=== PATIENT | female | born 1950 | race Caucasian/White ===

== ENCOUNTER 2019-07-09 09:49 | Outpatient (CLI) | payer MEDICARE, OTHER, SELFPAY ==
[2019-07-09 10:55] LABS: BUN 16 mg/dL (7-18); CREATININE 0.76 mg/dL (0.55-1.02); Calcium 9.5 mg/dL (8.5-10.1); Calculated LDL 77 mg/dL; Chloride 96 mmol/L (98-107); Cholesterol 169 mg/dL (50-200); Glucose 99 mg/dL (70-100); HDL Cholesterol 77 mg/dL (40-60); Potassium 3.2 mmol/L (3.5-5.1); Sodium 137 mmol/L (136-145); Triglyceride 79 mg/dL (30-150)
== END 2019-07-09 10:09 ==
PROVIDERS: PCP Neuromusculoskeletal Medicine & OMM; Visit Provider Neuromusculoskeletal Medicine & OMM
DX: I10 Essential (primary) hypertension (principal); E78.5 Hyperlipidemia, unspecified
CPT/HCPCS: 36415; 80048; 80061

== ENCOUNTER 2019-11-01 01:03 | Outpatient (CLI) | payer MEDICARE, OTHER, SELFPAY ==
--- NOTE | 2019-11-01 10:00 | DI.MAMMO_ITS ---
EXAM: MG MAMMO SCREENING CLINICAL HISTORY: screening TECHNIQUE: Bilateral full field digital CC and MLO mammographic images were obtained with 3D tomosyn thesis and utilizing computer aided detection (CAD). COMPARISON: Available for comparison. FINDINGS: Masses/Architectural Distortion: None seen. Microcalcifications: No suspicious pleomorphic-type are seen. Skin Thickening/Nipple Retraction: None. IMPRESSION: 1. No significant interval change with no specific features of malignancy noted. 2. Unless there is more urgent need, screening mammography is recommended, as per [employer] guidelines. BI-RADS Cat 1 - Negative Breast Density - Category B - Scattered areas of fibroglandular density A negative radiographic report should not delay biopsy if a dominant or clinically suspicious mass is present. Up to ten percent of cancers are not identified on mammography. A negative report may reinforce clinical impression. Adenosis and dense breasts may obscure an underlying neoplasm. False positive reports average 6 to 10%. Patient will receive a letter notifying them of these results.
== END 2019-11-01 01:23 ==
PROVIDERS: PCP Neuromusculoskeletal Medicine & OMM; Visit Provider Nurse Practitioner Family
DX: Z12.31 Encounter for screening mammogram for malignant neoplasm of breast (principal)
CPT/HCPCS: 77063; 77067

== ENCOUNTER → 2022-01-18 01:00 | Outpatient (CLI) | payer MEDICARE, OTHER, SELFPAY ==
--- OUTSIDE RECORDS SUMMARY | 2022-01-18 01:02 | XMS_ITS ---
:1950 Author Care Team Providers Name Role Phone MARILEE RIVERA Primary Care Provider [phone] Allergies Code Code System Name Reaction Severity Status Onset NKDA ? Medications Name Status Start Date Stop Date ? ? albuterol sulfate concentrate 2.5 mg/0.5 mL Completed 08/2612/05/2009 solution for nebulization alprazolam 0.5 mg tablet Completed 12/05/2009 010 1 Tablet: three times daily, as needed atorvastatin 20 mg tablet Active ? Not av ailable TAKE 1 TABLET AT BEDTIME chlorthalidone 25 mg tablet Completed ? 07/25 clobetasol 0.05 % scalp solution Active ? Not available famotidine 10 mg tablet Completed ? 01/06/20 19 Take 1 tablet every day by oral route. flaxseed Active ? Not available 1 daily fluocinolone 0.01 % topical body oil Completed ? 06/01/2020 hydroxyzine HCl 25 mg tablet Completed 06/17/2011 1 (one) Tablet: 4-6 hours for itching IBU 600 mg tablet Completed ? 08/03/2019 ibuprofen 200 mg tablet Active ? Not avai lable Take 1 tablet every 6 hours by oral route. Kenalog 40 mg/mL suspension for injection Completed ? 08/04/2018 1 shot lisinopril 20 mg tablet Completed ? 06/01/20 20 TAKE 1 TABLET DAILY meloxicam 15 mg tablet Completed 03/22/2014 4 1 (one) Tablet: daily, as needed metoprolol succinate ER 25 mg tablet,extended Active ? Not available release 24 hr metronidazole 0.75 % topical gel Active ? Not available multivitamin Active ? Not available 1 daily omeprazole 20 mg tablet,delayed release Completed 02/20/20 16 07/31/2017 1 (one) Tablet DR: as needed prednisone 20 mg tablet Completed 06/17/2011 06/24/20 11 1 Tablet: daily as directed Soolantra 1 % topical cream Active ? Not available PRN Zithromax TRI-PHILLIP 500 mg tablet Completed 02/04/2007 02/07/2007 1 Tablet: Daily Problems Name Status Onset Date Source ? Hyperlipidemia Active ? History Hypertensive Disorder Active ? History Contact Dermatitis Unknown ? History Palpitations Active ? History Active Immunization Unknown ? History Adult Health Examination Unknown ? History Screening for Cardiovascular System Disease Unknown ? History Trochanteric Bursitis of Right Hip Active ? History Finding of Esophagus Unknown ? History Procedure by Method Unknown ? History Mental Disorder Unknown ? History Procedures Date Name Performed by ? 08/03/2019 Electrocardiogram [facility] [place] [address] [place] [address] (Work Place) 08/03/2019 Event Monitor [facility] Cardio pulmonary [address] [place] [address] (Work Place) 08/03/2020 MAMMO, Screening, Tomosynthesis, [facility] Radiology (Internal) Bilateral [address] [place] [address] (Work Place) Results Lab Results Date Name Specimen Result Interpretation Description Value Range Status Address ? 09/18/2021 CMP, Serum or S ? g/r 96 mg/dL 74-106 [place] Plasma mg/dL [facility] (Internal) : [address] ? ? S High Bun 23 mg/dL 7-18 Final [place] mg/dL [facility] (Internal) : [address] ? ? S ? Crea 0.8 mg/dL 0.6-1.0 Final [place] mg/dL [facility] (Internal) : [address] ? ? S ? Ca 9.5 mg/dL 8.5-10. Final [place] 1 mg/dL [facility] (Internal) : [address] ? ? S ? Na 138 mmol/L 136-145 Final [place] mmol/L [facility] (Internal) : [address] ? ? S ? K 4.3 mmol/L 3.5-5.1 Final [place] mmol/L [facility] (Internal) : [address] ? ? S ? Cl 100 mmol/l 98-107 Final North mmol/l [facility] (Internal) : [address] ? ? S ? Tco2 28.9 mmol/L 21.0-32 Final Nort h .0 Country mmol/L Hospital L [facility] (Internal) : [address] ? ? S ? Tp 7.6 g/dL 6.4-8.2 Final North g/dL [facility] (Internal) : [address] ? ? S ? Alb 3.8 g/dL 3.4-5.0 Final [place] g/dL [facility] : [address] ? ? S ? Tbil 0.40 mg/dL 0.20-1. Final [place] 00 Country mg/dL Hospital L ab (Internal) : [address] ? ? S ? Alp 93 U/L 46-116 Final North U/L [facility] (Internal) : [address] ? ? S ? Alt (Sgpt) 30 U/L 14-59 Final North U/L [facility] (Internal) : [address] ? ? S ? Ast (Sgot) 18 U/L 15-37 Final North U/L [facility] (Internal) : [address] 09/18/2021 Lipid Panel, Serum S ? Chol 196 mg/dL 0-200 Final North mg/dL [facility] (Internal) : [address] ? ? S ? Trig 136 mg/dL 0-150 Final North mg/dL [facility] (Internal) : [address] ? ? S High Hdl 68 mg/dL 40-60 Final North mg/dL [facility] (Internal) : [address] ? ? S ? Ldl 101 mg/dL 0-130 Final North mg/dL [facility] (Internal) : [address] 09/18/2021 Venipuncture ? Location Right ? ? [facility] [place]: [address], [place] ? ? ? Needle 21g ? ? P[facility] Prim jillian Vacutainer [facility] [place]: [address] [facility] [place] [place] ? ? ? Number of 1 ? ? P_nc P rimary Attempts Care [place]: [address] [facility], [place] ? ? ? Successful Yes ? ? [facility] [place] [address] [facility], [place] ? ? ? Dressing Pressure ? ? P[facility] Primary Band-aid Care Applied [place]: [address] [facility], [place] ? ? ? Initials hj ? ? P[facility] Pr imary Care [place] [address] [facility] [place] 08/05/2019 Electrocardiogram ? Rate & ? ? ? [facility] Primary Rhythm [facility] [place]: [address] [facility], [place] ? ? ? Qrs ? ? ? P[facility] Prima ry Care [place]: [address] [facility], [place] ? ? ? [place] ? ? ? P_nc Prima ry Interval Care [place]: [address] [facility], [place] ? ? ? QRS ? ? ? P_nc Prima ry Duration Care [place]: [address] [facility], [place] ? ? ? QT ? ? ? [facility] Prima ry Interval [facility] [place] [address] [facility] Past Encounters 09/18/2021 Hyperlipidemia Marilee Rivera, DO: [address] [facility] [address], Ph. 08/15/2021 Adult Health Examination; Hyperlipidemia ; Essential Hypertension; Pain in Right Hip Joint Marilee Rivera, DO: [address] [facility] [address], Ph. 08/07/2021 Administration of Influenza Vaccine Marilee Rivera, DO: [address] [facility] [address], Ph. 03/20/2021 Trochanteric Bursitis of Right Hip Marilee Rivera, DO: [address] [facility] [address], Ph. 08/03/2020 Adult Health Examination; Palpitations; Hypertensive Disorder; Hyperlipidemia Marliee Rivera, DO: [address] [place] [phone], Ph. Social History Tobacco Smoking Status Former Smoker Vaccine List Vaccine Type COVID-19, mRNA, LNP-S, PF, 100 mcg/0.5 m L dose (Moderna) 10/25/2020 11/22/2020 07/11/2021 influenza, high dose seasonal 07/31/2017 influenza, high-dose, quadrivalent 06/01/2020?0.7 mL 08/07/2021?0.7 mL pneumococcal conjugate PCV 13 08/04/2018?0.5 mL pneumococcal polysaccharide PPV23 08/03/2019?0.5 mL Tdap 03/18/2006 02/20/2016?0.5 mL Plan of Care Reminders Provider Appointments None recorded. ? ? Lab None recorded. ? ? Referral None recorded. ? ? Procedures None recorded. ? ? Surgeries None recorded. ? ? Imaging None recorded. ? ? Vitals 08/15/2021 09:40AM CPE 20 Height Weight BMI Blood Pressure 167.64 cm 71.21 kg 25.3 kg/m2 132/74 mm[Hg] 08/07/2021 01:00PM Nurse 20 Height 167.64 cm 03/20/2021 11:00AM Injection 20 Height Weight BMI Blood Pressure 167.64 cm 71.21 kg 25.3 kg/m2 134/80 mm[Hg] 08/03/2020 09:40AM AWV 20 Height Weight BMI Blood Pressure 167.64 cm 70.31 kg 25 kg/m2 138/80 mm[Hg] 06/01/2020 12:40PM Acute 20 Height Weight BMI Blood Pressure 167.64 cm 71.67 kg 25.5 kg/m2 132/78 mm[Hg] 08/31/2019 02:40PM Follow Up 20 Height Weight BMI Blood Pressure 167.64 cm 68.49 kg 24.4 kg/m2 142/80 mm[Hg] 08/03/2019 12:40PM AWV 20 Height Weight BMI Blood Pressure 167.64 cm 68.95 kg 24.5 kg/m2 144/80 mm[Hg] 01/05/2019 03:40PM Injection 20 Height Weight BMI Blood Pressure 167.64 cm 69.85 kg 24.9 kg/m2 124/70 mm[Hg] 08/04/2018 12:40PM AWV 20 Height Weight BMI Blood Pressure 167.64 cm 68.49 kg 24.4 kg/m2 142/74 mm[Hg] 01/13/2018 04:00PM Procedure 20 Height Weight BMI Blood Pressure 167.64 cm 71.71 kg 25.5 kg/m2 138/88 mm[Hg] 07/31/2017 Weight Blood Pressure 66.68 kg 130/74 mm[Hg] 02/21/2017 Weight Blood Pressure 67.13 kg 122/68 mm[Hg] 03/21/2016 Height Weight Blood Pressure 167.64 cm 68.04 kg 140/78 mm[Hg] 02/20/2016 Weight Blood Pressure 68.95 kg 140/80 mm[Hg] 12/05/2015 Height Weight Blood Pressure 167.64 cm 70.31 kg 134/90 mm[Hg] 08/01/2015 Height Weight Blood Pressure 167.64 cm 70.31 kg 148/88 mm[Hg] 03/07/2015 Height Weight Blood Pressure 167.64 cm 71.21 kg 132/94 mm[Hg] 12/15/2014 Weight Blood Pressure 72.8 kg 138/84 mm[Hg] 08/09/2014 Weight Blood Pressure 72.57 kg 158/98 mm[Hg] 02/16/2014 Height Weight Blood Pressure 167.64 cm 71.21 kg 142/84 mm[Hg] 06/17/2011 Height Weight Blood Pressure 167.64 cm 69.85 kg 130/70 mm[Hg] 01/03/2010 Height Weight Blood Pressure 170.18 cm 71.21 kg 128/70 mm[Hg] 12/05/2009 Weight Blood Pressure 70.31 kg 124/80 mm[Hg] 02/23/2007 Weight Blood Pressure 68.04 kg 120/72 mm[Hg] 02/04/2007 Weight Blood Pressure 65.77 kg 122/70 mm[Hg] 09/18/2006 Height Weight Blood Pressure 165.1 cm 69.4 kg 112/80 mm[Hg] 09/11/2006 Weight Blood Pressure 68.49 kg 118/68 mm[Hg] 03/18/2006 Height Weight Blood Pressure 167.64 cm 66.68 kg (1) 134/84 mm[Hg] (2) 132/92 mm[Hg]
--- NOTE | 2022-01-18 12:15 | DI.MAMMO_ITS ---
Exam(s) MAMMO SCREENING EXAM: MAMMO SCREENING CLINICAL HISTORY: screening TECHNIQUE: Mammograms were interpreted according to the usual protocol including computer analysis w [employer] CAD system, tomosynthesis and C-view imaging. COMPARISON: 2012 through 2019 FINDINGS: The breasts are composed of scattered fibroglandular densities, Breast Density category B. No suspicious masses or suspicious microcalcifications are seen. No skin thickening or abnormal axillary lymph nodes are seen. There has been no significant change from prior exams. IMPRESSION: BI-RADS Category 1, Negative mammogram Yearly screening mammography is recommended. Breast Density - Category B, scattered fibroglandular densities. A negative radiographic report should not delay biopsy if a dominant or clinically suspicious mass is present. Up to ten percent of cancers are not identified on mammography. A negative report may reinforce clinical impression. Adenosis and dense breasts may obscure an underlying neoplasm. False positive reports average 6 to 10%. Patient will receive a letter notifying them of these results.
== END ==
PROVIDERS: PCP Neuromusculoskeletal Medicine & OMM; Visit Provider Nurse Practitioner Family
DX: Z12.31 Encounter for screening mammogram for malignant neoplasm of breast (principal)
CPT/HCPCS: 77063; 77067

== ENCOUNTER → 2022-11-14 10:59 | Outpatient (BNVA) | payer MEDICARE, OTHER, SELFPAY | PROVIDERS: PCP Neuromusculoskeletal Medicine & OMM; Referring Provider Neuromusculoskeletal Medicine & OMM; Visit Provider Physical Therapy Assistant | DX: Z12.11 Encounter for screening for malignant neoplasm of colon (principal) ==

== ENCOUNTER 2022-11-25 09:49 | Day surgery (SDC) | payer MEDICARE, OTHER, SELFPAY ==
--- NOTE | 2022-11-24 19:57 | PDOC.DSDIS_ITS ---
Date of service: 11/25/22 Time of Service: 10:55 Discharge Plan Disposition Patient Disposition: Home Condition: Good Discharge Details Reason For Visit: Colonoscopy Attending Provider: Ghanshyam Colvin Primary Care Provider: Earl Rivera [place] Meds and New Rx's Prescriptions: Continued metoprolol succinate 25 mg capsule,sprinkle,ER 24hr 25 mg PO DAILY ibuprofen 200 mg capsule 200 mg PO Q6H PRN aspirin [Adult Aspirin Regimen] 81 mg tablet,delayed release (DR/EC) 81 mg PO DAILY clobetasol 0.025 % cream 1 applic topical DAILY multivitamin [Daily Multi-Vitamin] 1 EACH tablet 1 ea PO DAILY atorvastatin 20 MG tablet 20 mg PO DAILY Discontinued bisacodyl [Dulcolax (bisacodyl)] 5 mg tablet,delayed release (DR/EC) 5 mg PO ONCE Qty: 4 0RF Rx Instructions: Take according to provider's instructions for colonoscopy prep. polyethylene glycol 3350 17 gram/dose powder 17 g PO ONCE Qty: 238 0RF Rx Instructions: To be taken as directed by prescriber's office for colonoscopy prep. Discharge Instructions Additional Instructions: 1. If tolerated, consume a soft, low fiber diet for 1-2 days. 2[address] Do not drive, drink alcohol, operate machinery, make critical decisions, or do activities that require coordination or balance for 24 hours. 3. Because air was put into your colon during the procedure, expelling air from your rectum (passing gas or farting) is normal. 4. You may not have a bowel movement for 1-3 days because of the colonoscopy prep. This is normal. 5. Go directly to the emergency room if you notice any of the following: Develop chills (warm to touch), or if you have a thermometer and your temperature is above 101 Difficulty breathing or difficultly swallowing Persistent vomiting Severe abdominal pain, other than gas cramps Severe chest pain Black, tarry stools Any bleeding ? exceeding one tablespoon 6. Call your physician if the site where your intravenous was started becomes red, swollen, painful, and warm to touch. 7. Your physician has reviewed your pre-procedure medications. Please continue to take those medications as previously ordered. You will be given specific information/education regarding any changes to your medications before leaving. Activity:: Activity as Tolerated Diet:: As Tolerated Discharge Orders Discharge Orders: Discharge Order (Routine); Ordered 11/24/22 Ordered By: Ghanshyam Colvin DS: Diagnosis Discharge Diagnosis (1) Screening for colon cancer: Status: Acute Asessment and Plan: Follow-up on polypectomy results
--- NOTE | 2022-11-24 19:58 | W.COLOREPORT ---
Date of service: 11/25/22 Time of Service: 10:57 Colonoscopy Report Date of procedure: 11/25/22 Pre-op diagnosis general: Screening colonscopy Post-op diagnosis procedure note: other (Colorectal polyps) Procedure: Colonoscopy with polypectomy Surgeon: Ghanshyam Colvin Anesthesia Type: General:No Airway Estimated blood loss (mL): 5 Pathology: other (Colon polyps at 20 cm) Complications: None Disposition: same day Indications: Madelaine is a 72 year old women who is here for a screening colonoscopy Prep: Miralax/Dulcolax Procedure Start Time: 10:33 Procedure End Time: 10:47 Retraction Time: 11 Findings: Polyps at 20 cm Procedure Description: After the induction of monitored anesthetic care, and with the patient in left lateral decubitus position, I began by performing an external anorectal exam.? Perineum and skin were normal, as was the anal verge.? There was no evidence of external hemorrhoids.? Next, I performed a digital rectal exam.? I did not appreciate any abnormal findings.? Next, I advanced a colonoscope into the rectal vault.? I performed retroflexion.? This appeared normal.? Using insufflation, I then advanced the colonoscope beyond the rectal folds and into the sigmoid colon before advancing towards the cecum.?Around 20 cm from the anal verge I identified 2 polyps. Each was less than 0.5 cm. ?Both appeared sessile in character. ?I was able to remove these with a cold forceps. ?I examined the sites, and there was minimal bleeding. ?Once this was completed, I continued to withdraw the scope and examine the remainder of the colonic mucosa. The quality of the prep was excellent.? The scope was noted to be in the cecum by identification of the ileocecal valve and appendiceal orifice.? I then began withdrawing the colonoscope using repeated irrigation as necessary for full evaluation of the colonic mucosa. ?Once the scope was withdrawn to the level of the rectum, great care was taken to examine portions of the rectal folds.? Finally, the scope was withdrawn and the patient was brought to the same-day surgery recovery unit as the anesthetic wore off. ?The findings and instructions were shared with the patient prior to discharge.
[2022-11-25 10:00] VITALS: BP 114/86; PULSE 72; RESP 16; TEMP 36; O2SAT 96
--- NOTE | 2022-11-25 10:17 | W.ANESPRE ---
General Info Date of Service Date Performed: 11/25/22 Height: 5 ft 6 in Weight: 68.4 kg Body Mass Index (BMI): 24.3 Surgical Procedure: Operation Date: 11/25/22 11:05 Proposed Procedure Side Surgeon p Jose Colvin MD Meds Allergies and Home Medications Allergies Allergy/AdvReac Type Severity Reaction Status Date / Time No Known Allergies Allergy Verified 11/25/22 10:00 Home Medication Medication Instructions Recorded multivitamin (Daily Multi-Vitamin 1 ea PO DAILY 02/20/15 tablet) atorvastatin 20 mg tablet 20 mg PO DAILY 03/19/16 ibuprofen 200 mg capsule 200 mg PO Q6H PRN 10/29/19 metoprolol succinate 25 mg capsule 25 mg PO DAILY 10/29/19 sprinkle, ext. release 24 hr aspirin 81 mg tablet,delayed 81 mg PO DAILY 11/14/22 release (Adult Aspirin Regimen) clobetasol 0.025 % topical cream 1 applic topical DAILY 11/14/22 Current Visit Medications: Current Medications Generic Name Dose Route Start Last Admin Trade Name Freq PRN Reason Stop Dose Admin Hyoscyamine Sulfate 0.125 mg 11/24/22 20:00 Hyoscyamine 0.125 Mg Sl/Oral/Chew SL DIRECTED PRN Ringer's Solution 1,000 mls @ 80 mls/hr 11/25/22 06:00 IV 11/25/22 23:59 [facility] IV Miscellaneous Supplies 1 each 11/25/22 06:00 Iv Access IV 11/25/22 23:59 DIRECTED WYATT Ondansetron HCl 4 mg 11/24/22 20:00 Ondansetron 4 Mg/2 Ml Vial IVP Q4H PRN PRN Nausea / Vomiting Sodium Chloride 0 ml 11/25/22 06:00 Normal Saline Flush 10 Ml Syr IV 11/25/22 23:59 PRN PRN Sodium Chloride 0 ml 11/25/22 06:00 Normal Saline 10 Ml Vial IJ 11/25/22 23:59 DIRECTED PRN Sterile Water 0 ml 11/25/22 06:00 Water,Injection,Sterile 10 Ml Vial IJ 11/25/22 23:59 DIRECTED PRN PFSH Active Problems Active Problems: Problem Status Onset Code Elevated lipids 03/19/16 E78.5 Screening for colon cancer Z12.11 Medical History Medical History (Updated 11/22/22 @ 13:40 by Anson Aldrich) High cholesterol HTN (hypertension) Surgical History Surgical History Appendectomy Ligation of fallopian tube Tobacco Smoking/Tobacco Use Status: Former Tobacco Use Alcohol Alcohol Intake: never Substance Use Substance use type: does not use Vital Signs and Lab Results Vital Signs Most Recent Vital Signs in EMR: Most Recent Vital Signs Temp Pulse Resp BP Pulse Ox 36.0 C L 72 16 114/86 96 11/25/22 10:00 11/25/22 10:00 11/25/22 10:00 11/25/22 10:00 11/25/22 10:00 Lab Results Blood Type / Crossmatch: No Data to Display Complete Blood Count: No Data to Display Complete Metabolic Panel: No Data to Display Liver Function Panel: No Data to Display Coagulation Panel: No Data to Display Cardiac Panel: No Data to Display Arterial Blood Gas: No Data to Display Venous Blood Gas: No Data to Display Pancreas Panel: No Data to Display Thyroid Panel: No Data to Display Infectious Disease: No Data to Display Blood Cultures: No Data to Display Toxicology Panel: No Data to Display Anesthesia Assessment and Plan Anesthesia History Personal History: No History of Anesthesia Complications Family History: No Family History of Anesthesia Complications Exercise Tolerance Exercise Tolerance: Metabolic Equivalents>4 Pertinent Negatives Pertinent Negatives: No Symptoms of GERD, No Major Cardiovascular Symptoms or Complaints, No Major Pulmonary Symptoms or Complaints and No History of CVA/TIA Cardiac & Pulmonary Exam Cardiac Exam: Normal S1/S2 Heart Sounds Pulmonary Exam: Clear Bilateral Breath Sounds Implantable Cardiac Device Does patient have a Pacemaker or an ICD?: No Airway Exam Known Difficult Airway: No Mallampati Class: 2 Mouth Opening: Normal (> 3cm) Thyromental Distance: Greater than 3 cm Neck Range of Motion: Full ROM Neck Circumference: Normal Teeth Condition: Normal Dentition (prominent upper front teeth) ASA Classification ASA Score: ASA 2 Emergency Case?: No NPO Status NPO Status: NPO Clears >2 hours, Solids >8 hours Anesthesia Plan Resuscitation Status: Full Code Anesthesia Technique: General Anesthesia Airway Planned: Natural Airway Monitors Used: Standard Monitors
[2022-11-25] MEDS: Lactated Ringers 1,000 ML 80 ML IV (10:18)
[2022-11-25 10:22] VITALS: BMI 24.3
--- NOTE | 2022-11-25 10:36 | BOWEL_PTH ---
PATIENT: Madelaine Walters LOC: [facility] U#:[id number] AGE/SX: 72/F ROOM: RE11/25/[address]: Ghanshyam Colvin MD : 1950 BED: DIS: 11/25/2022 SPEC #: [id number] RECD: 11/25/22 13:01 STATUS: MAHSA REQ #: [id number] SANDEEP: 11/25/22 10:[address]: Ghanshyam Colvin DEPT: Surgical Specimen RECD BY: Madelaine Simpson ENTERED: 11/25/22 13:02 SP TYPE: Bowel OTHR DR: Earl Rivera Tissues: 1 - BIOPSY BOWEL Procedures: GROSS AND MICRO LEVEL 4 Comments: [id number]
[2022-11-25 10:53] VITALS: BP 88/64; PULSE 78; RESP 16; TEMP 36.7; O2SAT 98
[2022-11-25 11:25] VITALS: BP 116/68; PULSE 76; RESP 16; TEMP 36.4; O2SAT 98
--- NOTE | 2022-11-25 11:50 | W.ANESPOSTOP ---
Postoperative Evaluation Date, Time and Location Date Performed: 11/25/22 Time Performed: 11:25 Patient Location: Day Surgery Unit Vital Signs Most Recent Imported Vital Signs: Most Recent Vital Signs Temp Pulse Resp BP Pulse Ox 36.4 C L 76 16 116/68 98 11/25/22 11:25 11/25/22 11:25 11/25/22 11:25 11/25/22 11:25 11/25/22 11:25 Pain Score Most Recent Pain Score: Most Recent Pain Score Pain Level 0 11/25/22 11:25 Assessment Mental Status: Awake (Alert & Oriented to Patient Baseline) Airway and Respiratory Function: Patent airway with normal (patient baseline) respiratory exam Cardiovascular Function: Hemodynamically Stable Hydration Status: Adequately Hydrated Nausea & Vomiting: No Nausea or Vomiting Pain: Pt. Denies Any Pain Peripheral Nerve Block: Patient did not receive a nerve block
== END 2022-11-25 11:35 | disposition home or self-care (01) ==
PROVIDERS: PCP Neuromusculoskeletal Medicine & OMM; Visit Provider Surgery
PROC: 0DJD8ZZ Inspection of Lower Intestinal Tract, Via Natural or Artificial Opening Endoscopic (ICD-10-PCS; CPT 45378; principal; 2022-11-25 11:00)
DX: Z12.11 Encounter for screening for malignant neoplasm of colon (principal); K63.5 Polyp of colon
CPT/HCPCS: 45380; 88305

== ENCOUNTER 2023-05-26 09:12 | Outpatient (CLI) | payer MEDICARE, OTHER, SELFPAY ==
--- NOTE | 2023-05-26 09:00 | DI.RAD_ITS ---
Exam(s) XR PELVIS AP EXAM: XR PELVIS AP CLINICAL HISTORY: THR planning. TECHNIQUE: 2D digital imaging was performed. COMPARISON: No exams were available for comparison FINDINGS: Single view. No evidence of pelvic nor hip fracture. However, there is severe advanced [id number] narrowing of the right hip joint space with some flattening of the right femoral head and prominent subarticular d egenerative cysts both sides the joint. Largest are of subarticular cyst is seen in the roof of the acetabulum. More moderate degenerative changes are noted in the opposite-left hip. 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 Moderate degenerative changes in the left hip. DATA REPOSITORY: RADIATION DOSE DELIVERED:
== END 2023-05-26 09:13 | disposition home or self-care (01) ==
LOC: DIORS 09:12
PROVIDERS: PCP Neuromusculoskeletal Medicine & OMM; Referring Provider Neuromusculoskeletal Medicine & OMM; Visit Provider Student in an Organized Health Care Education/Training Program
DX: M25.559 Pain in unspecified hip (principal); M16.11 Unilateral primary osteoarthritis, right hip
CPT/HCPCS: 99213; 72170

== ENCOUNTER 2023-06-23 03:14 | Outpatient (CLI) | payer MEDICARE, SELFPAY ==
[2023-06-23 15:41] LABS: HCT 42.3 % (36.0-46.0); HGB 13.6 g/dL (11.2-15.7); MCH 28.9 pg (27.0-33.0); MCHC 32.2 % (32.0-36.0); MCV 90 fL (80-95); MPV 9.3 fL (8.0-11.0); Platelet Count 326 10^3/uL (130-400); RBC 4.71 10^6/uL (3.93-5.22); RDW 12.8 % (11.7-14.6); RDW-SD 42.3 fL; WBC 8.28 10^3/uL (4.4-10.8)
[2023-06-23 16:36] LABS: Anion Gap 9.4 mmol/L (3-11); BUN 22 mg/dL (7-18); CO2 27.6 mmol/L (21.0-32.0); CREATININE 0.9 mg/dL (0.55-1.02); Calcium 9.6 mg/dL (8.5-10.1); Chloride 99 mmol/L (98-107); Estimated GFR 67.92 (mL/min/1.73m2); Glucose 95 mg/dL (74-106); Potassium 4.2 mmol/L (3.5-5.1); Sodium 136 mmol/L (136-145)
== END 2023-06-23 03:15 | disposition home or self-care (01) ==
LOC: LBO 03:14
PROVIDERS: PCP Neuromusculoskeletal Medicine & OMM; Visit Provider Student in an Organized Health Care Education/Training Program
DX: M16.11 Unilateral primary osteoarthritis, right hip (principal); Z01.818 Encounter for other preprocedural examination
CPT/HCPCS: 36415; 80048; 85027

== ENCOUNTER 2023-06-23 17:49 | Outpatient (CLI) | payer MEDICARE, SELFPAY ==
--- NOTE | 2023-06-23 14:00 | DI.RAD_ITS ---
Exam(s) XR PELVIS AP EXAM: XR PELVIS AP CLINICAL HISTORY: PRE OP R NICO. TECHNIQUE: 2D digital imaging was performed. COMPARISON: CR XR PELVIS AP from 05/26/2023 FINDINGS: Severe degenerative changes of the right hip are again noted, with obliteration of the superior joint space, flattening of the femoral head and acetabular remodeling as well as subchondral cyst formatio n. Findings unchanged from prior. Mild degenerative changes noted in the right hip. IMPRESSION: Stable end-stage degenerative changes of the right hip. DATA REPOSITORY: RADIATION DOSE DELIVERED:
== END 2023-06-23 17:50 | disposition home or self-care (01) ==
LOC: DIORS 17:51
PROVIDERS: PCP Neuromusculoskeletal Medicine & OMM; Visit Provider Physician Assistant
DX: M16.11 Unilateral primary osteoarthritis, right hip (principal); Z01.818 Encounter for other preprocedural examination
CPT/HCPCS: 36415; 80048; 85027; 72170

== ENCOUNTER 2023-07-08 06:14 | Day surgery (SDC) | payer MEDICARE, SELFPAY ==
[2023-07-08] VITALS (17 sets, daily range): BP systolic 59–204; BP diastolic 28–100; PULSE 58–75; RESP 10–18; TEMP 36.3–36.6; O2SAT 95–100; BMI 25.3
[2023-07-08] MEDS: Celecoxib 200 MG CAP 400 MG PO (06:35)
[2023-07-08] MEDS: Acetaminophen 500 MG TAB 1000 MG PO (06:35)
[2023-07-08] MEDS: Lactated Ringers 1,000 ML 80 ML IV (06:45)
--- NOTE | 2023-07-08 06:58 | W.ANESPRE ---
General Info Date of Service Date Performed: 07/08/23 Height: 5 ft 6 in Weight: 71.3 kg Body Mass Index (BMI): 25.3 Surgical Procedure: Operation Date: 07/08/23 07:50 Proposed Procedure Side Surgeon p Hip Total Hip Anterior, Corail (STD or Low ) Right Eduardo Evans MD Meds Allergies and Home Medications Allergies Allergy/AdvReac Type Severity Reaction Status Date / Time No Known Allergies Allergy Verified 07/08/23 06:11 Home Medication Medication Instructions Recorded multivitamin (Daily Multi-Vitamin 1 ea PO DAILY 02/20/15 tablet) atorvastatin 20 mg tablet 20 mg PO DAILY 03/19/16 metoprolol succinate 25 mg capsule 25 mg PO DAILY 10/29/19 sprinkle, ext. release 24 hr clobetasol 0.025 % topical cream 1 applic topical DAILY 11/14/22 echinacea 380 mg capsule 380 mg PO DAILY 05/26/23 vitamin E (dl, acetate) 45 mg (100 45 mg PO DAILY 05/26/23 unit) capsule acetaminophen 500 mg tablet 1,000 mg (2 x 500 mg) PO Q8H PRN 07/08/23 pain #90 tabs aspirin 81 mg tablet,delayed 81 mg PO BID 30 days #60 tabs 07/08/23 release celecoxib 200 mg capsule (Celebrex) 200 mg PO BID PRN #60 caps 07/08/23 dexamethasone 4 mg tablet 4 mg PO DAILY #2 tabs 07/08/23 docusate sodium 100 mg capsule 100 mg PO BID #30 caps 07/08/23 (Colace) oxycodone 5 mg tablet 5 mg PO Q6H PRN #12 tabs 07/08/23 pantoprazole 40 mg tablet,delayed 40 mg PO DAILY #14 tabs 07/08/23 release Current Visit Medications: Current Medications Generic Name Dose Route Start Last Admin Trade Name Freq PRN Reason Stop Dose Admin Acetaminophen 1,000 mg 07/08/23 06:00 07/08/23 06:35 Acetaminophen 500 Mg Tab PO 07/08/23 16:00 1,000 mg PREOP WYATT Administration Celecoxib 400 mg 07/08/23 06:00 07/08/23 06:35 Celecoxib 200 Mg Cap PO 07/08/23 16:00 400 mg PREOP WYATT Administration Tranexamic Acid 1,000 mg/ 60 mls @ 360 mls/hr 07/08/23 06:00 Sodium Chloride IV 07/08/23 16:00 PREOP WYATT Ringer's Solution 1,000 mls @ 80 mls/hr 07/08/23 06:00 07/08/23 06:45 IV 08/06/23 23:59 80 mls/hr INFUSION WYATT Administration Cefazolin Sodium/Dextrose 2 gm in 50 mls @ 100 mls/hr 07/08/23 06:00 Ancef Duplex IVPB 07/08/23 16:00 PREOP WYATT IV Miscellaneous Supplies 1 each 07/08/23 06:00 Iv Access IV 08/06/23 23:59 DIRECTED WYATT Sodium Chloride 0 ml 07/08/23 06:00 Normal Saline Flush 10 Ml Syr IV 08/06/23 23:59 PRN PRN Sodium Chloride 0 ml 07/08/23 06:00 Normal Saline 10 Ml Vial IJ 08/06/23 23:59 DIRECTED PRN Sterile Water 0 ml 07/08/23 06:00 Water,Injection,Sterile 10 Ml Vial IJ 08/06/23 23:59 DIRECTED PRN PFSH Active Problems Active Problems: Problem Status Onset Code Primary osteoarthritis of right hip M16.11 Hyperplastic colon polyp ~11/25/22 K63.5 Retinal artery occlusion H34.9 Medical History Medical History Hyperlipidemia HTN (hypertension) Surgical History Surgical History History of colonoscopy with polypectomy (~11/25/22) Ligation of fallopian tube Appendectomy Tobacco Smoking/Tobacco Use Status: Former Tobacco Use Alcohol Alcohol Intake: never Substance Use Substance use type: does not use Prental History History 2 Para 2 Hx # Term Pregnancies Multiple births Hx # Pregnancies Ectopic pregnancies AB induced Hx Number of Living Children AB spontaneous Vital Signs and Lab Results Vital Signs Most Recent Vital Signs in EMR: Most Recent Vital Signs Temp Pulse Resp BP Pulse Ox 36.5 C 67 18 156/86 H 98 07/08/23 06:11 07/08/23 06:11 07/08/23 06:11 07/08/23 06:11 07/08/23 06:11 Lab Results Blood Type / Crossmatch: No Data to Display Complete Blood Count: White Blood Count 8.28 10^3/uL (4.4-10.8) 06/23/23 15:29 Red Blood Count 4.71 10^6/uL (3.93-5.22) 06/23/23 15:29 Hemoglobin 13.6 g/dL (11.2-15.7) 06/23/23 15:29 Hematocrit 42.3 % (36.0-46.0) 06/23/23 15:29 Platelet Count 326 10^3/uL (130-400) 06/23/23 15:29 Complete Metabolic Panel: Sodium 136 mmol/L (136-145) 06/23/23 15:29 Potassium 4.2 mmol/L (3.5-5.1) 06/23/23 15:29 Chloride 99 mmol/L (98-107) 06/23/23 15:29 Carbon Dioxide 27.6 mmol/L (21.0-32.0) 06/23/23 15:29 BUN 22 mg/dL (7-18) H 06/23/23 15:29 Creatinine 0.9 mg/dL (0.55-1.02) 06/23/23 15:29 Est GFR (CKD-EPI 2020) 67.92 (mL/min/1.73m2) 06/23/23 15:29 Calcium 9.6 mg/dL (8.5-10.1) 06/23/23 15:29 Glucose 95 mg/dL (74-106) 06/23/23 15:29 Liver Function Panel: No Data to Display Coagulation Panel: No Data to Display Cardiac Panel: No Data to Display Arterial Blood Gas: No Data to Display Venous Blood Gas: No Data to Display Pancreas Panel: No Data to Display Thyroid Panel: No Data to Display Infectious Disease: No Data to Display Blood Cultures: No Data to Display Toxicology Panel: No Data to Display Anesthesia Assessment and Plan Anesthesia History Personal History: No History of Anesthesia Complications Family History: No Family History of Anesthesia Complications Exercise Tolerance Exercise Tolerance: Metabolic Equivalents>4 Pertinent Negatives Pertinent Negatives: No Symptoms of GERD, No Major Cardiovascular Symptoms or Complaints, No Major Pulmonary Symptoms or Complaints and No History of CVA/TIA Cardiac & Pulmonary Exam Cardiac Exam: Normal S1/S2 Heart Sounds Pulmonary Exam: Clear Bilateral Breath Sounds Implantable Cardiac Device Does patient have a Pacemaker or an ICD?: No Airway Exam Known Difficult Airway: No Mallampati Class: 2 Mouth Opening: Normal (> 3cm) Thyromental Distance: Greater than 3 cm Neck Range of Motion: Full ROM Neck Circumference: Normal Teeth Condition: Normal Dentition (prominent incsors) ASA Classification ASA Score: ASA 2 Emergency Case?: No NPO Status NPO Status: NPO Clears >2 hours, Solids >8 hours Anesthesia Plan Resuscitation Status: Full Code Anesthesia Technique: Spinal Anesthesia Airway Planned: Natural Airway Monitors Used: Standard Monitors
--- NOTE | 2023-07-08 07:19 | W.PM.DS.N ---
Date of service: 07/08/23 Time of Service: 09:00 DS: Diagnosis Discharge Diagnosis (1) Primary osteoarthritis of right hip: Status: Chronic Discharge Plan Disposition Patient Disposition: Home Condition: Good Discharge Details Reason For Visit: Right hip DJD Attending Provider: Eduardo Evans Primary Care Provider: Earl Rivera [place] Meds and New Rx's Prescriptions: New acetaminophen 500 mg tablet 1,000 mg PO Q8H PRN Qty: 90 0RF Rx Instructions: Take two tablets up to every 8 hours as needed for pain aspirin 81 mg tablet,delayed release (DR/EC) 81 mg PO BID 30 Days Qty: 60 0RF celecoxib [Celebrex] 200 mg capsule 200 mg PO BID PRNQty: 60 0RF Rx Instructions: Take one tablet twice daily for pain and inflammation docusate sodium [Colace] 100 mg capsule 100 mg PO BID Qty: 30 0RF pantoprazole 40 mg tablet,delayed release (DR/EC) 40 mg PO DAILY Qty: 14 0RF dexamethasone 4 mg tablet 4 mg PO DAILY Qty: 2 0RF Rx Instructions: Take one tablet once daily for two days oxycodone 5 mg tablet 5 mg PO Q6H PRNQty: 12 0RF Rx Instructions: Take one tablet up to every 6 hours as needed for severe postoperative pain Continued metoprolol succinate 25 mg capsule,sprinkle,ER 24hr 25 mg PO DAILY clobetasol 0.025 % cream 1 applic topical DAILY vitamin E (dl, acetate) 45 mg (100 unit) capsule 45 mg PO DAILY echinacea 380 mg capsule 380 mg PO DAILY Rx Instructions: administer with meals multivitamin [Daily Multi-Vitamin] 1 EACH tablet 1 ea PO DAILY atorvastatin 20 MG tablet 20 mg PO DAILY Discontinued ibuprofen 200 mg capsule 200 mg PO Q6H PRN aspirin [Adult Aspirin Regimen] 81 mg tablet,delayed release (DR/EC) 81 mg PO DAILY Discharge Instructions Additional Instructions: Total Hip Discharge Instructions Activity: The most important activity is to walk. You should try to take short walks a few times a day. You have no restrictions on movement or positioning, but do not try to force what you do. You will find some stiffness and weakness with hip flexion (lifting your knee). Do not try to strengthen this too early, continue to practice walking and stairs and this will come. - Outpatient physical therapy can be helpful to help return you to a normal gait and improve your flexibility and strength. This can start around 2 weeks. For some patients, it?s not necessary. Usually this is determined at the time of discharge or at the first post-operative visit. - You should wear the ALLY hose on both legs for 2 weeks. Dressing: Keep the surgical dressing in place for at least one week. After the first week it may be removed and replace with light gauze and tape or nothing. It may get wet after 3 days but avoid soaking the dressing. If it gets wet, just lightly pat dry. It is important to always keep some gauze between skin folds, especially when you are sitting. Spend some time with the wound exposed when you are lying flat as the incision does wrinkle onto itself. Medications: - You should take Tylenol and an anti-inflammatory Celebrex as your primary pain control medications. If the Celebrex is too expensive or not covered, please call the office for another alternative (Advil/Ibuprofen or Naproxen/Aleve). - You have been prescribed a stronger pain medication Oxycodone for breakthrough pain, take as needed as prescribed. - You have also been prescribed a stomach acid reduction agent Pantoprozole to help reduce stomach acid and reflux. - You have also been prescribed Decadron to help with post-operative nausea and pain. You will take this for two days starting tomorrow. - You will be taking Aspirin 81mg twice a day for DVT prevention unless instructed otherwise. - If you have constipation you should take Colace (which has been prescribed) or Miralax (which is available [id number]). It takes most people 3-4 days to have a bowel movement. Follow-up: 2 weeks If you have any acute concerns or questions, please do not hesitate to contact the office at [phone]. You may contact Dr. Evans with any questions after hours through the hospital at [phone] or on his cell phone at [phone]. Referrals: Eduardo Evans MD [ [facility] STAFF PHYSICIAN] - Equipment/Supplies: Walker Activity:: Activity as Tolerated Remove Dressings/Wound Care:: Do Not Remove Shower/Bathe:: 72 hours and Cover Diet:: As Tolerated Discharge Orders Discharge Orders: Discharge Order (Routine); Ordered 07/08/23 Ordered By: Liyah Daily DS: Summary Time Spent with Patient providing and/or coordinating discharge services: Less than 30 minutes Status at Discharge Functional status at discharge: uses cane/walker Overall status at discharge: patient is progressing back to baseline Mental Status: mental status grossly normal Speech and Movement: speech and movement normal Mood: congruent mood Affect: normal affect Exam Psych Mental Status: mental status grossly normal Speech and Movement: speech and movement normal Mood: congruent mood Affect: normal affect DS: Data Vitals/I&O Vitals and I&O: Vital Signs Temperature 97.7 F 07/08/23 06:11 Pulse 67 07/08/23 06:11 Pulse Rhythm Regular 07/08/23 06:11 Respiratory Rate 18 07/08/23 06:11 Respiratory Depth Deep 07/08/23 06:11 Blood Pressure 156/86 H 07/08/23 06:11 Pulse Oximetry 98 07/08/23 06:11 Oxygen Delivery Method Room Air 07/08/23 06:11 Oxygen Flow Rate 0 07/08/23 06:11 Pain Level 7 07/08/23 06:11 Intake & Output 07/07/23 07/07/23 07/08/23 11:59 23:59 11:59 Weight 157 lb 157 lb 3.033 oz PFSH All Active Problems Primary osteoarthritis of right hip (Chronic) Hyperplastic colon polyp (Acute ~11/25/22) Retinal artery occlusion (Acute) Left eye Medical History Hyperlipidemia HTN (hypertension) Surgical History History of colonoscopy with polypectomy (~11/25/22) Ligation of fallopian tube Appendectomy Family History Mother Diabetes Myocardial infarction Father No problems noted. Social History (Updated 11/19/22 @ 09:52 by KATHERINE Gutiérrez) Smoking/Tobacco Use Status: Former Tobacco Use Quit Date: 08/25/79 Smoking risk assessment performed?: Yes Alcohol Intake: never Substance use type: does not use Housing: house Do you feel safe at home: Yes Do you feel safe in your relationship?: Yes Additional Social history: lives alone History History 2 Para 2 Hx # Term Pregnancies Multiple births Hx # Pregnancies Ectopic pregnancies AB induced Hx Number of Living Children AB spontaneous Time Spent with Patient Time Spent with Patient: <45 minutes Time was spent: counseling the patient and care coordination
[2023-07-08] MEDS: ceFAZolin 2 GM/50 ML BAG IVPB (07:34)
--- NOTE | 2023-07-08 08:50 | DI.RAD_ITS ---
Exam(s) XR HIP RT IN OR EXAM: XR HIP RT IN OR CLINICAL HISTORY: right hip osteiarthritis. TECHNIQUE: 2D and realtime digital imaging was performed. COMPARISON: CR XR PELVIS AP from 06/23/2023 FINDINGS: Hard copy images show placement of a right hip prosthesis. The alignment appears satisfactory. Please see procedure note for details. Fluoro time: 31.1seconds RADIATION DOSE DELIVERED: Ka,r=3.05 mGy
--- NOTE | 2023-07-08 09:08 | ROE_ITS ---
Date of service: 07/08/23 Time of Service: 08:00 Operative Note Operative Note DATE OF PROCEDURE: 07/08/23 PRE-OP DIAGNOSIS: Right Hip Osteoarthritis POST-OP DIAGNOSIS: same PROCEDURE: Right Anterior Total Hip Arthroplasty with Intraoperative Navigation SURGEON: Eduardo Evans CLINICAL RESEARCH SPEC: Liyah Daily ANESTHESIA TYPE: Spinal Refer to Anesthesia Record ESTIMATED BLOOD LOSS: 250 PATHOLOGY: none sent TOURNIQUET TIME: 0 COMPLICATIONS: None Patient was transported to: PACU Patient's condition: stable Implants: 1. Depuy [place] Acetabular Component, 54mm 2. Depuy Acetabular Liner, [id number] 3. Depuy Corail Standard Collared Femoral Stem, Size 14 4. Depuy Altrx Ceramic Femoral Head, Size 36+5mm Indications: I have seen Madelaine in clinic for symptoms of hip arthritis, confirmed with radiographic findings. She has exhausted nonoperative methods and was having significant limitations in daily function and desired better function and less pain. I discussed the technical details of a hip replacement. I explained the risks of the procedure to include, but not limited to, bleeding, infection, pain, stiffness, fracture, damage to nerves and vessels, damage to muscles and tendons, loosening, instability, leg length inequality, need for repeat pr ocedure, blood clot and cardiopulmonary demise. Despite these risks, Madelaine elected to proceed. Findings: There was significant signs of arthritis throughout the hip with notable deformity of the femoral head. Procedure Description: Madelaine was greeted in the preoperative holding area where the correct side was identified and marked. The consent was reviewed with the patient and signed. The history and physical was updated. All questions were answered. She was taken back to the operating room. A spinal anesthestic was then administered. The feet were wrapped with cast padding and Coban and then placed into the boot liners and then into the boots. Care was taken to protect the skin and make sure the heels were fully down and the boots were stable. The patient was then positioned onto the HANA table. Both legs were held in a neutral position. SCDs were applied. The patient was then slid down onto a peroneal post. Prophylactic antibiotics in the form of Cefazolin were administered. 1g of Tranxemic Acid was given intravenously within 30 minutes of incision. The right leg was then prepped with Chloraprep and draped in a standard fashion. A second prep with Chloraprep was performed prior to placement of a shower-curtain type drape with Iodine impregnated skin protection. A timeout to confirm correct identity, side and site, procedure, allergies, anesthesia, and medical concerns was performed. An obliquely oriented incision was made starting lateral to the ASIS and running distal over the Tensor Fascia Shannon (TFL) muscle belly toward the fibular head, approximately 10cm. The skin and soft tissue was dissected sharply, through Elbert?s fascia, and to the fascia of the TFL. With the fascia and superior border of the IT band identified, the fascia was incised with a new knife just above any perforators from the IT band. The TFL muscle belly was bluntly dissected away from the fascia and moved laterally. The fat between TFL and rectus was identified to ensure the dissection was not within the TFL. Blunt dissection created space between abductors and the capsule and retractor was placed over the lateral femoral neck. The fibers of the rectus femoris tendon were identified and these were freed from the anterior capsule. A second cobra retractor was placed around the medial femoral neck. The TFL was further retracted laterally to show the deep fascia. Careful dissection through this layer identified three main crossing vessels of the lateral femoral circumflex. These were cauterized in multiple locations and then cut without any noticeable bleeding. The TFL was further released bluntly from the deep fascia to expose anterior hip capsule and fat The Artur orthopaedic retractor was then placed beneath the TFL and against sartorius and medial soft tissues to protect and retract the soft tissues. A T-capsulotomy was then performed starting at the superior lateral acetabulum and moving distally to the intertrochanteric ridge. These capsular flaps were tagged with a No. 1 Ethibond and elevated from within. The capsular flaps were released to the shoulder of the lateral neck and to the lesser trochanter to give excellent visualization of the proximal femur. A neck osteotomy was performed using an oscillating saw based on preoperative templates. This cut started in the shoulder and of the lateral neck and exited medially. The saw was at all times directed medially to avoid injury to the greater trochanter. Gross traction was applied to the leg and the osteotomy opened. The femoral head was removed with a corkscrew, making sure to protect the TFL on its exit. The femoral head had significant deformity and large osteophytes. Traction was released after head removal. The femoral head was measured on the back table to determine the starting reamer size. Portions of the rectus obscuring visualization were minimally elevated off the superior acetabulum. An anterior retractor was placed over the anterior wall between capsule and labrum and attached to the Gripper retraction system. The femur was rotated to 90 degrees and medial capsule was fully released until the lesser trochanter was palpable and visible; the femur was returned to 30 degrees. A posterior retractor was placed similarly between capsule and labrum. This provided excellent visualization. The contents of the cotyloid fossa were removed with electrocautery and the labrum was removed with a knife. There was a notable floor osteophyte. There was significant chondromalacia of the superior acetabulum. Acetabular reaming began with a 50mm reamer. This first reaming was directed anterior to posterior and medial to get down to the true floor. This was inspected and reamed until the true floor was reached. The anterior retractor was then released and entry and exit was provided by traction on the capsular flaps. I then reamed sequentially up to a 54mm reamer where good fit was obtained. The larger reamers were oriented based on anatomical reference of the anterior and lateral sethi to ensure proper abduction and anteversion. Positioning and size was confirmed with the fluoroscopy. A 54mm Depuy [place] acetabular component was selected. The acetabulum was reamed around the periphery with the selected acetabular size to prevent a rim fit. The deep tissues were irrigated. The acetabular component was then impacted in a position of about 40-45 degrees of abduction and 15-20 degrees of anteversion, using the patient?s anatomy as the ultimate landmark. Fluoroscopy was used to confirm this. There was excellent machine pie maker of the acetabular component and the inserting handle was removed. The acetabular liner, Depuy [id number] polyethylene liner, was inserted and lined up with the tines of the acetabular component. There was no soft tissue interposition. The liner was then impacted into position and confirmed to be well-seated. A portion of the ladonna-articular cocktail was then injected around the acetabulum into the capsule and periosteum. This cocktail consisted of 123mg of Ropivacaine, 0.25mg of Epinephrine, 0.04mg of Clonidine, and 15mg of Ketorolac, diluted to 50cc. The leg was rotated to 120 degrees. Any remaining medial capsule was released until the lesser trochanter was easily palpable. A retractor was placed medially. The lateral capsule was further released into the shoulder to allow access to the greater trochanter. A Brady retractor was placed over the greater trochanter which allowed the trochanter to flip in front of the capsule for excellent exposure. The leg was brought down into maximal extension and 20 degrees of adduction while ensuring there was no impingement on the acetabulum. Any remnant capsule within the trochanter was released. Piriformis and obturator externis were identified and protected. There was excellent access to the proximal femur. The lateral neck remnant was removed with a rongeur. A blunt canal probe was used to identify the canal and trajectory for later broaching. A box osteotome initiated the broach course. A small curved rasp and a curved curette were used to work laterally. Broaching then began with a size 8 Corail broach. This was inserted manually around the trochanter and into the canal before mallet blows. The broach was seated to a few millimeters below the cut level based on the neck cut and the preoperative template. Sequential broaching was continued with the [employer] pneumatic broaching device until a tight fit was obtained with good rotational control of the femur. A trial standard neck was inserted along with a +5 trial head. The leg was brought out of extension and adduction and then reduced with tracti on and internal rotation. The leg was stable anteriorly in a position of 30 degrees of extension and 90 degrees of external rotation. Fluoroscopy was used to ensure there was no fracture and the stem was seated well. Leg lengths were checked with an AP pelvis and pelvic reference points. TopFloor navigation system was used to confirm appropriate positioning and leg length and offset. Once content with the desired offset and leg lengths, the leg was brought back into extension, external rotation and adduction. The periosteum and surrounding tissue was injected with remaining portion of the ladonna-articular cocktail. The proximal femur was irrigated as well as the deep tissues. The Depuy Corail standard collared stem, size 14, was then manually inserted into the proximal femur making sure to control rotation. It was then malleted into position with light blows, giving breaks to allow bone expansion and decrease risk of fracture. The selected Depuy Altrx Ceramic Head, size 3 6+5mm, was then placed onto the clean and dry trunnion and secured with impaction onto the tapered fit. The leg was brought back out of extension and adduction and reduced with traction and internal rotation. Stability was confirmed with no shuck at 90 degrees of external rotation and 30 degrees of extension. No impingement through range of motion arc. Final x-ray images were obtained with fluoroscopy to confirm adequate positioning and no intraoperative fracture. The deep tissues were thoroughly irrigated with Irrisept, chlorhexadine solution. This was allowed to sit in the wound for 3 minutes before being thoroughly irrigated out with normal saline. The capsule was then reapproximated with the previously placed Ethibond sutures. The TFL fascia was finally closed with a No. 2 Stratafix, barbed suture. Deep tissues were then reapproximated with 0 Vicryl and a running 2-0 Vicryl. The skin was closed with a running 4-0 Monocryl in a subcuticular fashion. This was reinforced with skin glue. A Mepilex silver dressing was applied. At the end of the case, all counts were correct. Madelaine was transferred to the hospital bed without difficulty and suffering no apparent complication. Madelaine has a good prognosis. Physical therapy will start today and without restrictions, weight-bearing as tolerated. Aspirin 81mg BID will be used for DVT prophylaxis.
[2023-07-08] MEDS: oxyCODONE 5 MG TAB PO (11:05)
--- NOTE | 2023-07-08 11:40 | PT.INIE ---
PT Notes Visit Reasons: Right hip DJD Physical Therapy Day Surgery Initial Evaluation Date: 07/08/2023 Referring Doctor: KATHERINE Allison PT Orders: PT CONSULT: S/P Ortho Surgery Precautions: WBAT on the R LE with AD. 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 PMHX: Medical History (Updated 06/23/23 @ 14:44 by Liyah Daily) Hyperlipidemia HTN (hypertension) Surgical History (Updated 12/20/22 @ 13:16 by Yu Pickard RN) History of colonoscopy with polypectomy (~11/25/22) Ligation of fallopian tube Appendectomy Social History/Home Situation: Lives alone in a private home with 2-3 steps to enter. Has a flight of steps to the bedroom on the second floor. Uses a SPC outdoors whne pain Equipment Owned/DME: SPC Subjective: Complained of being lightheaded upon sitting up at edge of bed. Requested to lie back down in bed as symptom got worse right after she was asked to stand up with BP softening to 59/28 mmHg from 140/59 mmHg 15 minutes ago. Objective: General Observation: Resting in bed. Mepilex Ag over surgical incision. TEDS to B legs. Mental Status: Alert but unable to keep focus as she got more lightheaded at start of session. More alert the second time PT came back to complete assessment. Pain: 4-5/10 in the R hip throughout both sessions ROM: Right Lower Extremity: Hip flexion WFL. Hip abduction WFL. Knee flexion WFL. Ankle dorsiflexion WFL. Ankle plantarflexion WFL. Left Lower Extremity: Hip flexion WFL. Hip abduction WFL. Knee flexion WFL. Ankle dorsiflexion WFL. Ankle plantarflexion WFL. Strength: Right Lower Extremity: Hip flexors 4-/5. Hip abductors 4-/5. Knee flexors 5/5. Knee extensors 4-/5. Ankle dorsiflexors 5/5. Ankle plantarflexors 5/5. Left Lower Extremity:Hip flexors 5/5. Hip abductors 5/5. Knee flexors 5/5. Knee extensors 5/5. Ankle dorsiflexors 5/5. Ankle plantarflexors 5/5. Sensation: intact as to pain and light pressure in B LE Bed Mobility/Transfers: Minimal verbal cues provided for correct movement sequence and use of B UE for support and safety Supine to sit stand by assist Sit to stand contact guard assist with FWW Stand to sit contact guard assist with FWW Bed to chair stand by assist with FWW Gait: Facilitated safe and correct level surface ambulation using front wheeled walker with minimal verbal cueing provided for safe and correct movement sequence, limb advancement, AD management, and posture with wheelchair follow provided by BOBO Chinchilla for safety. Stairs: Guided patient with safe and correct negotiation of 6 x 4 inch steps and 4 x 6 inch steps while holding onto the rails for support and minimal verbal cueing provided for safe movement sequence, limb advancement, increased step height on the left side during ascent and overall safety. Balance: Static Sitting: Normal Dynamic Sitting: Normal Static Standing: Fair Dynamic Standing: Fair Special Tests: Mobility Limitations Standardized Measure [facility] 6 clicks Basic Mobility Inpatient Short Form: Raw Score: 21 CMS Score: 29% deficit Informed Consent/Education: Patient instructed in purpose of PT consult. Packet containing NICO exercise protocol has been given to patient. Education and training on initial set of exercises that can be done at home have been completed with patient. She is Trained patient with correct performance of exercises below to maximize motor control, joint flexibility, soft tissue extensibility of the R hip musculature to facilitate return to independent functional mobility performance. Access Code: [email or web address] URL: [email or web address] Date: 07/08/2023 Prepared by: Nataly Packer Exercises - Gluteal Sets - 1 x daily - 7 x weekly - 1 sets - 10 reps - 5 hold - Supine Heel Slide - 1 x daily - 7 x weekly - 1 sets - 10 reps - 5 hold - Supine Ankle Pumps - 1 x daily - 7 x weekly - 1 sets - 10 reps - 5 hold - Seated March - 1 x daily - 7 x weekly - 1 sets - 10 reps - 5 hold - Seated Long Arc Quad - 1 x daily - 7 x weekly - 1 sets - 10 reps - 5 hold ASSESSMENT: Patient requires all mobility ADL performance in order to maximize independence and reduce fall risk. Mobility assessment initially limited by report of lightheadedness and softening of blood pressure to 59/28 mmHg needing a second visit to allow for patient to regain hemodynamic stability. Patient presents with clinical signs and symptoms consistent with current/admitting diagnoses that have resulted to mobility limitations, gait instability, generalized weakness, and impairment of motor control as demonstrated by the following impairment level findings: 1. Decreased strength to right hip major muscle groups 2. Impaired standing balance Impairments are contributing to the following functional limitations: 1. Inability to safely ambulate without assistive device 2. Increase completion time for mobility ADL performance 3. Increased fall risk Patient is assessed as a 18617 moderate complexity based on the following: History: 72-year-old female with impairment level findings, functional limitations, and past medical history as indicated above Examination: Demonstrable impairment in strength, balance, and mobility level with underlying impairments and functional limitations as documented above Presentation: Evolving Decision Makin moderate complexity Goals: N/A. PT evaluation and 1-2 treatment sessions only for functional mobility training using recommended AD and for HEP instruction. Plan of Care/Treatment Plan: N/A. PT evaluation and 1-2 treatment session only for functional mobility training using recommended AD and for HEP instruction. DISCHARGE RECOMMENDATIONS: Home when medically cleared by orthopedic surgeon. Recommend outpatient PT services in order to optimize functional mobility outcomes and facilitate return to independent community ambulation without an assistive device. TREATMENT CODE/TIME: 9716 2 x 15 minutes for 1 unit, 07164 x 21 minutes for 1 unit beginning at 11:40 AM and 13:24 PM. Thank you for the opportunity to participate in the care of this patient. Nataly Packer PT, DPT, CLT [facility] [place], [place]
--- NOTE | 2023-07-08 13:40 | W.ANESPOSTOP ---
Postoperative Evaluation Date, Time and Location Date Performed: 07/08/23 Time Performed: 13:38 Patient Location: Day Surgery Unit Vital Signs Most Recent Imported Vital Signs: Most Recent Vital Signs Temp Pulse Resp BP Pulse Ox 36.4 C L 66 16 153/78 H 98 07/08/23 10:28 07/08/23 12:29 07/08/23 12:29 07/08/23 12:29 07/08/23 12:29 Pain Score Most Recent Pain Score: Most Recent Pain Score Pain Level 0 07/08/23 12:29 Assessment Mental Status: Awake (Alert & Oriented to Patient Baseline) Airway and Respiratory Function: Patent airway with normal (patient baseline) respiratory exam Cardiovascular Function: Hemodynamically Stable Hydration Status: Adequately Hydrated Nausea & Vomiting: No Nausea or Vomiting Pain: Pain is tolerable per patient (pain level 4/10) Peripheral Nerve Block: Patient did not receive a nerve block
== END 2023-07-08 16:35 | disposition home or self-care (01) ==
PROVIDERS: PCP Neuromusculoskeletal Medicine & OMM; Visit Provider Student in an Organized Health Care Education/Training Program
PROC: (CPT 27130; principal; 2023-07-08 07:30)
DX: M16.11 Unilateral primary osteoarthritis, right hip (principal); I10 Essential (primary) hypertension; E78.5 Hyperlipidemia, unspecified
CPT/HCPCS: 20985; 27130; C1776; 97110; 97162; 73501; J0690; J1100; J2250; J2405

== ENCOUNTER 2023-07-21 15:06 | Outpatient (CLI) | payer MEDICARE, SELFPAY ==
--- NOTE | 2023-07-21 10:45 | DI.RAD_ITS ---
Exam(s) XR HIP RT COMPLETE AP PELVIS EXAM: XR HIP RT COMPLETE AP PELVIS CLINICAL HISTORY: 1ST POST OP R NICO. TECHNIQUE: 2D digital imaging was performed. Three images were obtained. AP pelvis, AP and lateral right hip views were obtained. COMPARISON: CR XR PELVIS AP from 06/23/2023 XA XR HIP RT IN OR from 07/08/2023 FINDINGS: BONES: There are stable post operative changes of a right total hip replacement present. No fracture or dislocation. There is a subchondral cyst again seen in the superior acetabulum. JOINTS: The orthopedic hardware is in good position. No evidence of hardware loosening. There are m ild degenerative changes seen in the left hip. SOFT TISSUE: Normal. IMPRESSION: Stable postoperative changes. DATA REPOSITORY: RADIATION DOSE DELIVERED:
== END 2023-07-21 15:07 | disposition home or self-care (01) ==
LOC: DIORS 15:07
PROVIDERS: PCP Neuromusculoskeletal Medicine & OMM; Visit Provider Student in an Organized Health Care Education/Training Program
DX: Z96.641 Presence of right artificial hip joint (principal); Z47.1 Aftercare following joint replacement surgery
CPT/HCPCS: 73502

== ENCOUNTER → 2023-08-28 10:31 | Outpatient (BNVA) | payer MEDICARE, SELFPAY | PROVIDERS: PCP Neuromusculoskeletal Medicine & OMM; Referring Provider Neuromusculoskeletal Medicine & OMM; Visit Provider Student in an Organized Health Care Education/Training Program | DX: Z47.1 Aftercare following joint replacement surgery (principal); Z96.641 Presence of right artificial hip joint ==

== ENCOUNTER → 2023-10-13 10:25 | Outpatient (BNVA) | payer MEDICARE, SELFPAY | PROVIDERS: PCP Neuromusculoskeletal Medicine & OMM; Referring Provider Neuromusculoskeletal Medicine & OMM; Visit Provider Student in an Organized Health Care Education/Training Program | DX: Z47.1 Aftercare following joint replacement surgery (principal); Z96.641 Presence of right artificial hip joint ==

== ENCOUNTER → 2024-01-05 03:58 | Outpatient (CLI) | payer MEDICARE, SELFPAY ==
--- NOTE | 2024-01-05 15:05 | DI.MAMMO_ITS ---
Exam(s) MAMMO SCREENING EXAM: MAMMO SCREENING CLINICAL HISTORY: screening TECHNIQUE: Bilateral full field digital CC and MLO mammographic images were obtained with 3D tomosyn thesis and utilizing computer aided detection (CAD). COMPARISON: Available for comparison. FINDINGS: Masses/Architectural Distortion: None seen. Microcalcifications: No suspicious pleomorphic-type are seen. Skin Thickening/Nipple Retraction: None. IMPRESSION: 1. No significant interval change with no specific features of malignancy noted. 2. Unless there is more urgent need, screening mammography is recommended, as per [employer] guidelines. BI-RADS Category 1 - Negative Breast Density - Category B - Scattered areas of fibroglandular density Breast density category C or D implies that the patient has dense breast tissue. Dense breast tissue is very common and is not abnormal but dense breast tissue can make it harder to find cancer on a ma mmogram. Also, dense breast tissue may increase their breast cancer risk. This information about the result of the mammogram report was provided to the patient to raise their awareness. Use this report when you speak with the patient about their risks for breast cancer, which includes their family hist ory. At that time, you may recommend for more screening tests (Ultrasound or MRI) as they might be us eful based on their risk. A negative radiographic report should not delay biopsy if a dominant or clinically suspicious mass is present. Up to ten percent of cancers are not identified on mammography. A negative report may reinforce clinical impression. Adenosis and dense breasts may obscure an underlying neoplasm. False positive reports average 6 to 10%. Patient will receive a letter notifying them of these results.
== END ==
PROVIDERS: PCP Neuromusculoskeletal Medicine & OMM; Visit Provider Obstetrics & Gynecology
DX: Z12.31 Encounter for screening mammogram for malignant neoplasm of breast (principal)
CPT/HCPCS: 77063; 77067

== ENCOUNTER 2024-07-12 16:01 | Outpatient (CLI) | payer MEDICARE, SELFPAY ==
--- NOTE | 2024-07-12 10:45 | DI.RAD_ITS ---
Exam(s) XR HIP RT AP LAT ONLY EXAM: XR HIP RT AP LAT ONLY INDICATION: ANNUAL F/U R NICO. COMPARISON: CR XR HIP RT COMPLETE AP PELVIS from 07/21/2023 TECHNIQUE: 2D digital imaging was performed. Two views. FINDINGS: Stable alignment of hip prosthesis. No abnormal surrounding bony lucencies. DATA REPOSITORY: RADIATION DOSE DELIVERED:
--- NOTE | 2024-07-12 11:00 | DI.RAD_ITS ---
Exam(s) XR KNEE RT 4V AP,LAT,TIA,PAT EXAM: XR KNEE RT 4V AP,LAT,TIA,PAT CLINICAL HISTORY: RIGHT KNEE PAIN. TECHNIQUE: 2D digital imaging was performed. Three views. COMPARISON: No exams were available for comparison FINDINGS: BONES: No acute fracture is present. No bony destructive lesion is seen. Enthesophyte upper pole pa tella. JOINTS: The knee is normally aligned. A small joint effusion is seen. Mild narrowing of the lateral f emoral tibial joint space with minimal periarticular spurring. Mild spurring at the articular aspect of the patella. The patellar femoral joint space is maintained. SOFT TISSUE: Mild vascular calcifications. IMPRESSION: Mild degenerative changes of the lateral femoral tibial joint and patellofemoral joint. DATA REPOSITORY: RADIATION DOSE DELIVERED:
== END 2024-07-12 16:02 | disposition home or self-care (01) ==
LOC: DIORS 16:01
PROVIDERS: PCP Neuromusculoskeletal Medicine & OMM; Visit Provider Student in an Organized Health Care Education/Training Program
DX: Z47.1 Aftercare following joint replacement surgery; M17.11 Unilateral primary osteoarthritis, right knee; M70.61 Trochanteric bursitis, right hip; Z96.641 Presence of right artificial hip joint
CPT/HCPCS: 99213; 73502; 73564

== ENCOUNTER → 2024-11-15 08:56 | Outpatient (BNVA) | payer MEDICARE, SELFPAY | PROVIDERS: PCP Neuromusculoskeletal Medicine & OMM; Referring Provider Neuromusculoskeletal Medicine & OMM; Visit Provider Student in an Organized Health Care Education/Training Program | DX: M17.11 Unilateral primary osteoarthritis, right knee (principal); M70.61 Trochanteric bursitis, right hip; M19.032 Primary osteoarthritis, left wrist; G56.02 Carpal tunnel syndrome, left upper limb | CPT/HCPCS: 99213 ==

== ENCOUNTER → 2025-02-07 10:30 | Outpatient (BNVA) | payer MEDICARE, SELFPAY | PROVIDERS: PCP Family Medicine; Referring Provider Family Medicine; Visit Provider Student in an Organized Health Care Education/Training Program | DX: M17.11 Unilateral primary osteoarthritis, right knee (principal); G56.01 Carpal tunnel syndrome, right upper limb | CPT/HCPCS: 20610; J1010 ==